=== PATIENT | female | born 1960 | race Caucasian/White ===

== ENCOUNTER → 2017-01-06 | Day surgery (SDC) | payer OTHER ==
[~2017-01-06] MED LIST: ATOR20TA42 PO; BUPIVACAINE/EPINEPHRINE 0.5% PF 30 ML VIAL ONE; BUSP15TA PO; FENO50TA PO; FURO1TAB93 PO; GABA300C3 PO; IOHEXOL 180 MG/ML 20 ML VIAL (for RAD DIAG) ONE; KETOROLAC TROMETHAMINE 30 MG/ML (IVP) VIAL IV PUSH ONE; LACTATED RINGER'S 1000 ML INJ 1,000 ML ONE; LEXA20TA PO; LIDOCAINE 1%/EPINEPHrine 1:100,000 SOLN 50 ML VIAL ONE; MIDAZOLAM HCL 2 MG/2 ML VIAL ONE; MORP100T40 OR; MORPHINE SULFATE 4 MG/ML INJ ONE; OMEP20CA5 PO; ONDANSETRON HCL 4 MG/2 ML VIAL IV PUSH ONE; OXYC5 PO; PERC10TA27 PO; POTA-243 PO; PROPOFOL 500 MG/50 ML BTL IV ONE; TOPI100T OR; VITA400C28 PO; ZOLP6.25 OR; ceFAZolin 2 GM PREMIX 50 ML ONE
--- NOTE | 2017-01-06 07:52 | TN ---
cc: CHERRY WILL M.D. DATE OF OPERATION 01/06/2017 PREOPERATIVE DIAGNOSIS Compression fracture of L2 subacute. POSTOPERATIVE DIAGNOSIS Compression fracture of L2 subacute. PROCEDURE Kyphoplasty of L2 and placement of a bone cement spacer. SURGEON Cherry Will MD ANESTHESIA TIVA. ESTIMATED BLOOD LOSS Minimal. INDICATION This is a 56-year-old female who fell approximately 3-4 weeks ago sustaining a fracture to her spine. Investigative studies show evidence of an acute versus subacute fracture at the L2 level born out by CT scan and bone scan. The patient is having significant ongoing pain. She now presents for surgical treatment. PROCEDURE The patient was brought to the operating, given limited sedation. She was rolled to prone position on a radiolucent table. All pressure points were protected and the back was scrubbed with alcohol, followed by Hibiclens, followed by Chloraprep and draped sterilely. Antibiotics were given within a one-hour time window and time-out was done. AP and lateral radiographic images were identifying the L2 level and compared to preoperative studies. A single balloon approach was done utilizing the right side using the Kyphon system and a sequence of local anesthesia, small incision, and an awl placed through the pedicle and into the vertebral body at an oblique angle. A 20-mm Kyphon balloon was placed centrally and inflated. We had limited correction of the deformity but good fill overall. On the back table methyl methacrylate was mixed and after approximately 11 minutes was injected. We had no extravasation and overall it was felt to be very good vertebral body fill. The cement was allowed to harden. The tubes were removed. Intraoperative x-rays were obtained. The wound was anesthetized, irrigated and closed with 4-0 Vicryl followed by Dermabond. The patient awakened and taken to Recovery in satisfactory something. Cherry Will MD MCG/SSB /7:33 AM /7:43 AM
== END | disposition home or self-care (01) ==
LOC: ESDC 06:14
PROVIDERS: ATTEND Orthopaedic Surgery Orthopaedic Surgery of the Spine
DX: S32.020A Wedge compression fracture of second lumbar vertebra, initial encounter for closed fracture (principal)
CPT/HCPCS: 01936; 22514; 72100; J0690; J1885; J2250; J2270; J2405; J3010; J7120; Q9965